=== PATIENT | male | born 1985 | race Caucasian/White ===

== ENCOUNTER 2020-04-09 12:54 | Emergency (ER) | payer SELFPAY ==
[~2020-04-09] VITALS: Ht 185.4 cm; Wt 113.2 kg
[~2020-04-09 12:54] MED LIST: HCTZ PO; METHYLDO PO; NORCO 325 MG-51 TAB PO
[2020-04-09 13:01] VITALS: BP 135/81; TEMP 98.3
[2020-04-09 13:53] VITALS: PULSE 91
[2020-04-09 13:54] LABS: COLLECTION METHOD CLEAN CATCH
[2020-04-09 14:05] LABS: MUCOUS Present /lpf; PH 5 (5-8); SQUAMOUS EPITHELIAL 0-2 /hpf; URINE APPEARANCE Hazy; URINE BACTERIA None Seen /hpf; URINE BILIRUBIN Negative (NEGATIVE); URINE BLOOD 1+ (NEGATIVE); URINE COLOR Yellow; URINE GLUCOSE Negative (NEGATIVE); URINE KETONE Negative (NEGATIVE); URINE LEUKOCYTE ESTERASE Negative (NEGATIVE); URINE NITRATE Negative (NEGATIVE); URINE PROTEIN(semi-quant) 1+ (NEGATIVE)
== END 2020-04-09 13:55 | disposition home or self-care (01) ==
LOC: COL.ER 12:54
PROVIDERS: Nurse Practitioner Primary Care
DX: M54.5 Low back pain (principal); F17.210 Nicotine dependence, cigarettes, uncomplicated; Z88.0 Allergy status to penicillin